=== PATIENT | male | born 1955 | race Caucasian/White ===

== ENCOUNTER 2022-07-07 20:34 | Emergency (ER) | payer MEDICARE, MEDICAID, SELFPAY ==
[2022-07-07 20:40] VITALS: BP 159/85; PULSE 96; RESP 15; TEMP 37.1; O2SAT 94; BMI 27.9
--- NOTE | 2022-07-07 20:58 | ED.GENADULT ---
HPI - General Adult General Chief complaint: Toxicology Problem Stated complaint: alcohol withdraw Time Seen by Provider: 07/07/22 20:37 Source: patient Mode of arrival: Ambulatory History of Present Illness HPI narrative: 66-year-old male with extensive alcohol history presents requesting assistance with detox. He states he had his last drink within the past hour to and does not have any current withdrawal symptoms such as agitation, hallucinations or rapid heart rate. He has been in DTs before and has even had seizures. He denies headache or blurred vision. He has no chest pain or shortness of breath. He denies nausea, vomiting or diarrhea. He denies abdominal pain. He states he drinks a bottle of wine or multiple high strength beers per day. Last detox was this summer. Related Data Previous Rx's Medication Instructions Recorded lorazepam 1 mg tablet See Rx Instructions .Route 07/07/22 .COMPLEX PRN alcohol withdrawal #19 tabs Allergies Allergy/AdvReac Type Severity Reaction Status Date / Time No Known Drug Allergies Allergy Verified 07/07/22 21:41 Review of Systems Review of Systems Narrative: GENERAL: Denies chills, fatigue, malaise, fever, sweats. HEENT: Denies sinus pain, ear pain, sore throat, difficulty swallowing, dizziness. RESPIRATORY: Denies dyspnea, cough, wheezing, hemoptysis, sputum. CARDIOVASCULAR: Denies chest pain, palpitations, orthopnea, edema, GASTROINTESTINAL: Denies nausea, vomiting, abdominal pain, diarrhea, constipation, melena. : Denies dysuria, frequency, incontinence, hematuria, urinary retention. MUSCULOSKELETAL: denies weakness, joint pain, or bony pain SKIN: Denies rash, skin lesions, or other NEUROLOGIC: Denies weakness, headache, numbness, change in speech, confusion, seizures, incoordination. PSYCHIATRIC: No concerning psychosocial issues. 12 point review of systems is negative except for those stated above Patient History alcohol intake frequency: 3 or more drinks per day Alcohol type: beer, wine, hard liquor and other Substance Use Type: does not use Exam Narrative Exam Narrative: GENERAL: [66] year old patient appears stated age. Well-developed patient, in mild distress. HEAD: Atraumatic. Normocephalic. EYES: Pupils equal round and reactive. Extraocular motions intact. No scleral icterus. No injection or drainage. ENT: Nose without bleeding, purulent drainage. Throat without erythema, tonsillar hypertrophy or exudate. Airway patent. NECK: Trachea midline. Non tender CARDIOVASCULAR: Regular rate and rhythm without murmurs, gallops, or rubs. RESPIRATORY: Clear to auscultation. Breath sounds equal bilaterally. No wheezes, rales, or rhonchi. GASTROINTESTINAL: Abdomen soft, non-tender, nondistended. EXTREMITIES: No edema or joint tenderness. BACK: Nontender without deformity or crepitance. No flank tenderness. NEURO: AOx3. SKIN: No rash or erythema of visible areas Initial Vital Signs Initial Vital Signs: Vital Signs Temperature 98.8 F 07/07/22 20:40 Pulse Rate 96 H 07/07/22 20:40 Respiratory Rate 15 07/07/22 20:40 Blood Pressure 159/85 H 07/07/22 20:40 Pulse Oximetry 94 07/07/22 20:40 Oxygen Delivery Method 07/07/22 20:40 Course Course Course Narrative: Patient with concerning history and desire to quit alcohol has very low if any CIWA score. Given his history and concern for the onset of withdrawals he is given phenobarb IM here. Patient sent with prescription for Ativan taper. During his visit he and family were on the phone with [facility] in [place] and has planned intake at 1:00 p.m.. He is given extensive return precautions and questions have been answered to his apparent satisfaction Orders Ordered: Discontinued Medications Phenobarbital (Phenobarbital 65 Mg/Ml Vial) 260 mg IM NOW ONE Stop: 07/07/22 21:16 Last Admin: 07/07/22 21:23 Dose: 260 mg Documented By: ALEXANDRA Vital Signs Vital signs: Vital Signs - 8 hr 07/07/22 20:40 07/07/22 22:01 07/07/22 22:20 Temperature 98.8 F Pulse Rate 96 H 94 H 95 H Respiratory Rate 15 14 16 Blood Pressure 159/85 H 135/87 142/84 H Pulse Oximetry 94 97 98 Oxygen Delivery Method Room Air Room Air Nasal Cannula Discharge Plan Departure Patient Disposition: Home Clinical Impression: Alcohol withdrawal syndrome Instructions: DI for Alcohol Use Disorder Activity Restrictions/Additional Instructions: *You have been diagnosed with [alcohol abuse disorder] *What to do: *Please continue to take your regular medications as directed. [ ] New medication prescriptions sent to your pharmacy: [ ] [ x] New medication written as a paper prescription [ ] No new medications given *Please proceed to [facility] in [place] tomorrow as planned *If you do not have a primary care provider please contact the [facility] Resource line at [phone]. They will ask some questions about your medical history and help get you set up with a doctor in the community. *Return to Emergency Department if you should have any new, worsening or concerning symptoms, such as [fever greater than 101 F, shaking chills, worsening pain, persistent vomiting or other bothersome symptoms] Prescriptions: New lorazepam 1 mg tablet See Rx Instructions .ROUTE .COMPLEX PRN (Reason: alcohol withdrawal) Qty: 19 0RF Rx Instructions: Day 1: 2mg PO q6 Day 2: 2mg PO q8 Day 3: 2mg PO q12 Day 4: 1mg PO qhs #19 Visit Report Forms: Patient Portal/API
[2022-07-07] MEDS: PHENobarbital 65 MG/ML VIAL 260 MG IM (21:23)
[2022-07-07 22:01] VITALS: BP 135/87; PULSE 94; RESP 14; O2SAT 97
[2022-07-07 22:20] VITALS: BP 142/84; PULSE 95; RESP 16; O2SAT 98
== END 2022-07-07 22:20 | disposition home or self-care (01) ==
PROVIDERS: Emergency Provider Emergency Medicine
DX: F10.239 Alcohol dependence with withdrawal, unspecified (principal)
CPT/HCPCS: 96372; 99283; J2560

== ENCOUNTER 2023-04-13 16:05 | Emergency (ER) | payer MEDICARE, MEDICAID, SELFPAY ==
[2023-04-13] VITALS (7 sets, daily range): BP systolic 134–154; BP diastolic 68–91; PULSE 84–104; RESP 16; TEMP 36.8; O2SAT 93–99; BMI 25.1
[2023-04-13 17:13] LABS: Add Manual Diff / Slide Review NO; Basophils Absolute Auto 0 /uL (0-100); Basophils Percent Auto 0.8 % (0-2); Eosinophils Absolute Auto 0 /uL (0-450); Eosinophils Percent Auto 0.3 % (2-4); Hemoglobin 13.8 g/dL (13.5-17.5); Lymphocytes Absolute Auto 2400 /uL (1100-4500); Lymphocytes Percent Auto 39.1 % (25-40); Mean Corpuscular HGB Conc 34.5 % (30-36); Mean Corpuscular Hemoglobin 31.7 PG (26-34); Mean Corpuscular Volume 91.8 fL (80-100); Monocytes Absolute Auto 500 /uL (0-900); Neutrophils Absolute Auto 3100 /uL (1500-7000); Neutrophils Percent Auto 50.8 % (50-75); Platelet Count 170 X10^3/uL (150-400); Red Blood Cell Count 4.35 X10^6/uL (4.5-5.9); Red Cell Distribution Width 14.1 % (11.6-14.8)
--- NOTE | 2023-04-13 17:13 | ED.GENADULT ---
HPI - General Adult General Chief complaint: Toxicology Problem Stated complaint: needs detox Time Seen by Provider: 04/13/23 17:07 Source: patient Mode of arrival: Ambulatory History of Present Illness HPI narrative: Patient is a 67-year-old male. Unknown history of alcohol abuse. Has withdrawn from alcohol in the past. Has been to multiple detox/rehab in the past. He states that the last time he was here in the department he was sent to rehab. He was clean for approximately 250 days. This was until 2 weeks ago when he stated that he bought some alcohol in order to celebrate an accomplishment that his daughter had had and he has been drinking since then. He states his last drink was last evening. He states he is feeling a little anxious. He is no other complaints. Related Data Previous Rx's Medication Instructions Recorded lorazepam 1 mg tablet See Rx Instructions .Route 07/07/22 .COMPLEX PRN alcohol withdrawal #19 tabs Allergies Allergy/AdvReac Type Severity Reaction Status Date / Time No Known Drug Allergies Allergy Verified 07/07/22 21:41 Review of Systems Constitutional Constitutional: Reports system reviewed and no additional complaints, except as documented Cardiovascular Cardiovascular: Reports system reviewed and no additional complaints, except as documented Respiratory Respiratory: Reports system reviewed and no additional complaints, except as documented Gastrointestinal Gastrointestinal: Reports system reviewed and no additional complaints, except as documented Integumentary/Breasts Skin/Breast: Reports system reviewed and no additional complaints, except as documented Hematologic/Lymphatic On Anticoagulants: No Patient History Social History Smoking Status: Never smoker Smoking Status: Never smoker alcohol intake frequency: 3 or more drinks per day Alcohol type: beer, wine, hard liquor and other Substance Use Type: does not use Exam Initial Vital Signs Initial Vital Signs: Vital Signs Temperature 98.3 F 04/13/23 16:24 Pulse Rate 89 04/13/23 16:24 Respiratory Rate 16 04/13/23 16:24 Blood Pressure 134/81 04/13/23 16:24 Pulse Oximetry 99 04/13/23 16:24 Oxygen Delivery Method Room Air 04/13/23 16:24 Const General: cooperative, comfortable and No ill appearing HENMT Head: normal to inspection and normocephalic Resp Effort & Inspection: normal respiratory effort Cardio Rate: regular rate Skin General: no rashes or lesions noted Neuro General: patient alert, patient awake and moves all extremities Extrem General: normal to inspection and capillary refill normal Scores GCS Rolf coma scale eye opening: Spontaneous Rolf coma scale verbal response: Orientated Rolf coma scale motor response: Obey commands [place] coma scale total score: 15 Course Orders Ordered: ED Orders 04/13/23 16:45 Consult to [facility] [place] - [employer] Salesperson Stat 04/13/23 16:47 Urine Drug Screen, Rapid Stat 04/13/23 16:48 Urinalysis and Microscopic Stat 04/13/23 16:58 COVID19 -Nasal RAPID Stat 04/13/23 17:03 Complete Blood Count AUTO DIFF Stat Comprehensive Metabolic Panel Stat Ethanol (ETOH) Stat Discontinued Medications Phenobarbital (Phenobarbital 65 Mg/Ml Vial) 260 mg IM NOW ONE Stop: 04/13/23 17:14 Last Admin: 04/13/23 17:26 Dose: 260 mg Documented By: INNA Vital Signs Vital signs: Vital Signs - 8 hr 04/13/23 16:24 Temperature 98.3 F Pulse Rate 89 Respiratory Rate 16 Blood Pressure 134/81 Pulse Oximetry 99 Oxygen Delivery Method Room Air Medical Decision Making Medical Records Medical records reviewed: Yes I reviewed the patient's medical records. Lab Data Lab results reviewed: Yes I reviewed the patient's lab results. 04/13/23 17:03 04/13/23 17:03 Labs: Lab Results 04/13/23 04/13/23 04/13/23 Range/Units 16:58 17:03 17:03 WBC 6.0 (4.5-11.0) X10^3/uL RBC 4.35 L (4.5-5.9) X10^6/uL Hgb 13.8 (13.5-17.5) g/dL Hct 40.0 L (41-53) % MCV 91.8 (80-100) fL MCH 31.7 (26-34) PG MCHC 34.5 (30-36) % RDW 14.1 (11.6-14.8) % Plt Count 170 (150-400) X10^3/uL Neut % (Auto) 50.8 (50-75) % Lymph % (Auto) 39.1 (25-40) % Sherman % (Auto) 9.0 (3-14) % Eos % (Auto) 0.3 L (2-4) % Baso % (Auto) 0.8 (0-2) % Neut # (Auto) 3100 (6617-5155) /uL Lymph # (Auto) 2400 (6190-0093) /uL Sherman # (Auto) 500 (0-900) /uL Eos # (Auto) 0 (0-450) /uL Baso # (Auto) 0 (0-100) /uL Sodium 142 (137-145) mmol/L Potassium 3.9 (3.4-5.1) mmol/L [place] 103 (98-107) mmol/L Carbon Dioxide 25 (22-32) mmol/L BUN 13 (9-20) mg/dL Creatinine 0.71 (0.66-1.25) mg/dL Estimated GFR > 60 (>60) mL/min BUN/Creatinine Ratio 18.3 (6-22) Glucose 109 (80-110) mg/dL Calcium 8.8 (8.4-10.2) mg/dL Total Bilirubin 1.0 (0.2-1.3) mg/dL AST 43 (17-59) IU/L ALT 21 (<50) IU/L Alkaline Phosphatase 85 (38-126) U/L Total Protein 8.0 (6.3-8.2) g/dL Albumin 4.6 (3.5-5.0) g/dL Globulin 3.4 (1.7-4.1) g/dL Albumin/Globulin Ratio 1.4 (1.0-2.8) Ethyl Alcohol 297 H ( - 10) mg/dL SARS-CoV-2 (PCR) Negative (Negative) MDM Narrative Medical decision making narrative: Patient is alert oriented x3. Is having some anxiety. Was given phenobarbital which he states helped him in the past. Patient has been seen by social work. Care turned over to Dr. Ireland to continue with medical clearance with anticipated transfer to rehab. Discharge Plan Departure Prescriptions: No Action lorazepam 1 mg tablet See Rx Instructions .ROUTE .COMPLEX PRN (Reason: alcohol withdrawal) Qty: 19 0RF Rx Instructions: Day 1: 2mg PO q6 Day 2: 2mg PO q8 Day 3: 2mg PO q12 Day 4: 1mg PO qhs #19
[2023-04-13] MEDS: PHENobarbital 65 MG/ML VIAL 260 MG IM (17:26)
[2023-04-13 17:43] LABS: Alanine Aminotransferase 21 IU/L (<50); Albumin 4.6 g/dL (3.5-5.0); Albumin Globulin Ratio 1.4 (1.0-2.8); Alkaline Phosphatase 85 U/L (38-126); Aspartate Aminotransferase 43 IU/L (17-59); BUN Creatinine Ratio 18.3 (6-22); Blood Urea Nitrogen 13 mg/dL (9-20); Calcium 8.8 mg/dL (8.4-10.2); Carbon Dioxide 25 mmol/L (22-32); Chloride 103 mmol/L (98-107); Estimated Glomerular Filt Rate > 60 mL/min (>60); Ethanol (ETOH) 297 mg/dL; Globulin 3.4 g/dL (1.7-4.1); Glucose 109 mg/dL (80-110); HEMOLYSIS < 15 (0-50); Potassium 3.9 mmol/L (3.4-5.1); Sodium 142 mmol/L (137-145)
[2023-04-13 17:57] LABS: COVID19 -Nasal RAPID Negative (Negative)
--- NOTE | 2023-04-13 18:26 | CM.SWNOTE ---
Addendum entered by Diane Akins 04/13/23 19:53: Pt has been declined by [facility]. Discussed resources with pt and niece. Son Edmar is also now at bedside. Only other placement identified as a possibility is [facility] in [place]. SW called this facility and left a voicemail but has not heard back. Niece is aware of this facilityi adn indicates she had been told to call at 08:00. Pt and family all report feeling comfortable discharging home and attempting placement at [facility] tomorrow 04/14. Plan: Above information provided to MD. Anticipate pt will be discharged home. SHADI Thacker, RELIEF OPERATOR Original Note: ED AUTOMOTIVE DISMANTLER Note 18:30 Pt is a 67yo male who comes to the ED seeking detox from alcohol. Pt has a hx of Alcohol use disorder. He had been sober for 276 days prior to two weeks again when he had a resumption of use. Pt identifies he was celebrating an event and bought alcohol and has been drinking at least a bottle of wine or equivalent every day for the past two weeks. Pt reports he does not wish to use and is seeking help to enter a detox program. Pt lives alone and identifies concern for his safety if he were to go through alcohol detox at home. Pt nimann is at bedside and is a strong support. She identifies numerous other family and friends who are supportive of the pt. SW spoke with [facility] who confirm they do have beds and ask that pt call to complete a screen. SW to fax records to [facility]. Pt is a strong candidate for social detox program for detox from alcohol use. Pt is in agreement and requesting transfer to detox service. Plan: Detox referral in process. SHADI Thacker, RELIEF OPERATOR
[2023-04-13 19:15] LABS: Appearance Urine UA CLEAR; Bilirubin Urine UA NEGATIVE (NEGATIVE); Color Urine UA YELLOW; Glucose Urine UA NEGATIVE (Negative); Ketones Urine UA NEGATIVE (NEGATIVE); Leukocyte Esterase Urine UA NEGATIVE (NEGATIVE); Nitrite Urine UA NEGATIVE (Negative); Occult Blood Urine UA NEGATIVE (Negative); Protein Urine UA NEGATIVE (Negative); Specific Gravity Urine UA 1.015 (1.000-1.035); pH Urine UA 6.5 (4.5-8.0)
[2023-04-13 19:18] LABS: UR Morphine/Opiate cutoff 300 Negative (Negative); Ur Creatinine Normal (Normal); Ur Specific Gravity Normal (Normal); Urine Amphetamines Negative (Negative); Urine Barbiturates Negative (Negative); Urine Benzodiazepines Negative (Negative); Urine Cocaine Negative (Negative); Urine MDMA Negative (Negative); Urine Methadone Negative (Negative); Urine Methamphetamines Negative (Negative); Urine Oxycodone Negative (Negative); Urine Phencyclidine Negative (Negative); Urine Tetrahydrocannabinol Negative (Negative); Urine Tricyclic Antidepressant Negative (Negative); Urine pH Normal (Normal)
[2023-04-13 19:22] LABS: Bacteria Urine None Seen; RBC Urine 0-1/HPF (0-5/HPF); WBC Urine 0-1/HPF (0-5/HPF)
[2023-04-13 19:23] LABS: Culture Indicated Urine Cult Not Indicated; Squamous Epithelial Cell Urine 0-1 /HPF (0-5/HPF)
[2023-04-13] MEDS: LORazepam 0.5 MG TABLET 2 MG PO (20:00)
== END 2023-04-13 20:37 | disposition home or self-care (01) ==
PROVIDERS: Emergency Medicine; Emergency Provider Emergency Medicine
DX: F10.129 Alcohol abuse with intoxication, unspecified (principal); Y90.8 Blood alcohol level of 240 mg/100 ml or more; Z20.822 Contact with and (suspected) exposure to COVID-19
CPT/HCPCS: 36415; 80053; 80305; 80320; 81001; 85025; 87635; 96372; 99284; C9803; J2560

== ENCOUNTER 2024-11-06 08:28 | Emergency (ER) | payer MEDICARE, SELFPAY ==
[2024-11-06] VITALS (8 sets, daily range): BP systolic 139–165; BP diastolic 80–93; PULSE 88–107; RESP 19–37; TEMP 36.7–36.8; O2SAT 91–99; BMI 26.5
--- NOTE | 2024-11-06 08:37 | EKG_ITS ---
[id number] [address] Test Date: 2024-11-06 Pat Name: Jose Lehman Department: Room: Gender: Male Teacher'S Assistant: KYMBERLY : 1955 Requested By: Order Number: [id number] Reading MD: Charlie Peng MD Measurements Intervals [place] Rate: 99 P: 32 NH: 170 QRS: 23 QRSD: 86 T: -3 QT: 362 QTc: 464 Interpretive Statements Normal sinus rhythm Nonspecific ST abnormality Electronically Signed On 11-06-2024 11:57:01 PDT by Charlie Peng MD
--- NOTE | 2024-11-06 08:42 | DI.RAD.S_ITS ---
PROCEDURE: XR CHEST 1V INDICATIONS: chest pain TECHNIQUE: One view of the chest was acquired. COMPARISON: None. FINDINGS: Surgical changes and devices: None. Lungs and pleura: Lungs are clear. No pleural effusions or pneumothorax. Mediastinum: Mediastinal contours appear normal. Heart size is normal. Bones and chest wall: No suspicious bony lesions. Overlying soft tissues appear unremarkable. IMPRESSION: No acute cardiopulmonary abnormality is seen. Dictated by: Portillo Schultz M.D. on 11/06/2024 at 9:06 Approved by: Portillo Schultz M.D. on 11/06/2024 at 9:06
--- NOTE | 2024-11-06 08:54 | ED.CHESTPAIN ---
HPI - Chest Pain General Chief Complaint: Chest Pain Stated Complaint: sent to check [facility] Time Seen by Provider: 11/06/24 08:54 Source: patient Mode of arrival: Ambulatory Limitations: no limitations History of Present Illness HPI narrative: 69-year-old gentleman history of alcohol use abuse presents today for evaluation of heart palpitations his last drink was a pt of whiskey yesterday. His plan today is to go to alcohol rehab but they wanted him to come here to get clearance. Pt denies any chest pain, shortness of breath,dyspnea on exertion, back pain or any radiating symptoms he is asymptomatic at this point now. Other than what is stated 14 point review of system is negative Related Data Previous Rx's Medication Instructions Recorded lorazepam 1 mg tablet See Rx Instructions .Route 07/07/22 .COMPLEX PRN alcohol withdrawal #19 tabs lorazepam 1 mg tablet 1 mg PO TID #19 tabs 04/13/23 Allergies Allergy/AdvReac Type Severity Reaction Status Date / Time No Known Drug Allergies Allergy Verified 11/06/24 08:38 Review of Systems Review of Systems ROS Unobtainable: All systems reviewed & are unremarkable except as noted in HPI and below Patient History Social History Smoking Status: Never smoker Smoking Status: Never smoker alcohol intake frequency: 3 or more drinks per day Alcohol type: beer, wine, hard liquor and other Exam Narrative Exam Narrative: GENERAL: [] year old patient appears stated age. Well-developed patient, in mild distress. HEAD: Atraumatic. Normocephalic. EYES: Pupils equal round and reactive. Extraocular motions intact. No scleral icterus. No injection or drainage. NECK: Trachea midline. Non tender CARDIOVASCULAR: Regular rate and rhythm without murmurs, gallops, or rubs. RESPIRATORY: Clear to auscultation. Breath sounds equal bilaterally. No wheezes, rales, or rhonchi. GASTROINTESTINAL: Abdomen soft, non-tender, nondistended. EXTREMITIES: No edema or joint tenderness. BACK: Nontender without deformity or crepitance. No flank tenderness. NEURO: AOx3. SKIN: No rash or erythema of visible areas Initial Vital Signs Initial Vital Signs: Vital Signs Pulse Rate 107 H 11/06/24 08:31 Pulse Oximetry 99 11/06/24 08:31 Scores HEART Score Heart Score history: Slightly Suspicious Heart Score EKG: Normal Heart Score Age: > or = 65 years old Heart Score risk factors: No known risk factors Heart Score troponin: < or = to normal limit Heart Score Total: 2 Course Orders Ordered: Discontinued Medications Aspirin (Aspirin 81 Mg Chew Tab) 324 mg PO NOW ONE Stop: 11/06/24 08:43 Last Admin: 11/06/24 10:36 Dose: Not Given Documented By: NOHELIA Aspirin (Aspirin 81 Mg Chew Tab) 324 mg PO NOW ONE Stop: 11/06/24 08:42 Last Admin: 11/06/24 08:46 Dose: Not Given Documented By: KEIKO Vital Signs Vital signs: Vital Signs - 8 hr 11/06/24 10:30 11/06/24 10:30 Temperature 98.2 F Pulse Rate 88 Blood Pressure 144/89 H Pulse Oximetry 97 MDM - Chest Pain Lab Data 11/06/24 08:40 11/06/24 08:40 Labs: Lab Results 11/06/24 11/06/24 Range/Units 08:40 08:47 WBC 7.3 (4.5-11.0) X10^3/uL RBC 3.97 L (4.5-5.9) X10^6/uL Hgb 13.2 L (13.5-17.5) g/dL Hct 38.4 L (41-53) % MCV 96.7 (80-100) fL MCH 33.3 (26-34) PG MCHC 34.4 (30-36) % RDW 14.5 (11.6-14.8) % Plt Count 230 (150-400) X10^3/uL Neut % (Auto) 56.9 (50-75) % Lymph % (Auto) 32.9 (25-40) % Walsh % (Auto) 8.9 (3-14) % Eos % (Auto) 0.8 L (2-4) % Baso % (Auto) 0.5 (0-2) % Neut # (Auto) 4100 (0923-3364) /uL Lymph # (Auto) 2400 (4138-8213) /uL Walsh # (Auto) 600 (0-900) /uL Eos # (Auto) 100 (0-450) /uL Baso # (Auto) 0 (0-100) /uL PT 10.7 (9.4-12.5) SECONDS INR 0.9 (0.9-1.3) APTT 23 L (25.1-36.5) SECONDS Sodium 142 (137-145) mmol/L Potassium 3.5 (3.4-5.1) mmol/L [place] 105 (98-107) mmol/L Carbon Dioxide 22 (22-32) mmol/L BUN 8 L (9-20) mg/dL Creatinine 0.69 (0.66-1.25) mg/dL Estimated GFR > 60 (>60) mL/min BUN/Creatinine Ratio 11.6 (6-22) Glucose 145 H (80-110) mg/dL Calcium 8.8 (8.4-10.2) mg/dL Magnesium 2.0 (1.6-2.3) mg/dL Total Bilirubin 0.8 (0.2-1.3) mg/dL AST 44 (17-59) IU/L ALT 24 (<50) IU/L Alkaline Phosphatase 72 (38-126) U/L Total Creatine Kinase 76 (55-170) U/L Troponin I < 0.012 (0.01-0.034) ng/mL NT-Pro-B Natriuret Pep 32 (<125) pg/mL Total Protein 7.7 (6.3-8.2) g/dL Albumin 4.6 (3.5-5.0) g/dL Globulin 3.1 (1.7-4.1) g/dL Albumin/Globulin Ratio 1.5 (1.0-2.8) Lipase 117 (23-300) U/L TSH 1.39 (0.47-4.68) uIU/mL Free T4 0.85 (0.78-2.19) ng/dL Urine RBC None seen (0-5/HPF) Urine WBC 0-1/hpf (0-5/HPF) Ur Squamous Epith Cells 0-1 /hpf (0-5/HPF) Amorphous Sediment 1+ Urine Bacteria None seen (None) Urine Mucus 1+ H (Negative) Ur Culture Indicated? Cult not indicated Vol Urine Centrifuged 10ml (spun) Salicylates < 1.0 (<20) mg/dL U Opiates 300ng/mL cut Negative (Negative) Ur Oxycodone Screen Negative (Negative) Urine Methadone Screen Negative (Negative) Acetaminophen < 10 (10-30) ug/mL Ur Barbiturates Screen Negative (Negative) U Tricyclic Antidepress Negative (Negative) Ur Phencyclidine Scrn Negative (Negative) Ur Amphetamines Screen Negative (Negative) U Methamphetamines Scrn Negative (Negative) Ur MDMA Scrn (Ecstasy) Negative (Negative) U Benzodiazepines Scrn Negative (Negative) Urine Cocaine Screen Positive H (Negative) U Marijuana (THC) Screen Positive H (Negative) Urine pH Normal (Normal) Urine Specific [place] Normal (Normal) Ethyl Alcohol 289 H ( - 10) mg/dL Ur Creatinine Normal (Normal) Urine Dip Bedside Urine Glucose Negative Bedside Urine Bilirubin - Negative Bedside Urine Ketone - Negative Urine Specific [place] 1.020 Bedside Urine Occult Blood - Negative Bedside Urine pH 6.0 Bedside Urine Protein +/- 15 Bedside Urine Urobilinogen - Negative Bedside Urine Nitrite - Negative Bedside Urine Leukocytes - Negative Esterase Imaging Data Chest x-ray: Radiologist's Impression: [address] [address] XRay Report Signed Patient: Jose Lehman MR#: [id number] : 1955 Acct:[id number] Age/Sex: 69 / M Date of Service: 11/06/24 Loc: ED Accession Number: [id number] Procedure: XR chest 1V Ordering Provider: Charlie Frost D.O. PROCEDURE: XR CHEST 1V INDICATIONS: chest pain TECHNIQUE: One view of the chest was acquired. COMPARISON: None. FINDINGS: Surgical changes and devices: None. Lungs and pleura: Lungs are clear. No pleural effusions or pneumothorax. Mediastinum: Mediastinal contours appear normal. Heart size is normal. Bones and chest wall: No suspicious bony lesions. Overlying soft tissues appear unremarkable. IMPRESSION: No acute cardiopulmonary abnormality is seen. ECG Data Attestation: I personally reviewed and interpreted this ECG as follows: Interpretation: Sinus Rhythm HR [address]-t wave changes No old ekg for comparison MDM Narrative Medical decision making narrative: All labwork, imaging, ekg, RN note, triage note, medication list, old records from previous visits, vital signs all reviewed. Differential dx - STEMI, NSTEMI, electrolyte derangement, alcohol withdrawal, DT. Pt is going to Alcohol rehab per directly after d/c home. Discharge Plan Departure Patient Disposition: Home Clinical Impression: Heart palpitations Instructions: DI for Chest Pain Activity Restrictions/Additional Instructions: Return with new or worsening symptoms. Pt is medically cleared for detox and rehab admission. Prescriptions: No Action lorazepam 1 mg tablet See Rx Instructions .ROUTE .COMPLEX PRN (Reason: alcohol withdrawal) Qty: 19 0RF Rx Instructions: Day 1: 2mg PO q6 Day 2: 2mg PO q8 Day 3: 2mg PO q12 Day 4: 1mg PO qhs #19 lorazepam 1 mg tablet 1 mg PO TID Qty: 19 0RF Rx Instructions: Day 1: 2mg PO q6, Day 2: 2mg PO q8 Day 3: 2mg PO q12 Day 4: 1mg PO qhs Stand Alone Forms: Patient Portal/API/Survey
[2024-11-06 08:56] LABS: Add Manual Diff / Slide Review NO; Basophils Absolute Auto 0 /uL (0-100); Basophils Percent Auto 0.5 % (0-2); Eosinophils Absolute Auto 100 /uL (0-450); Eosinophils Percent Auto 0.8 % (2-4); Hematocrit 38.4 % (41-53); Hemoglobin 13.2 g/dL (13.5-17.5); Lymphocytes Absolute Auto 2400 /uL (1100-4500); Lymphocytes Percent Auto 32.9 % (25-40); Mean Corpuscular HGB Conc 34.4 % (30-36); Mean Corpuscular Hemoglobin 33.3 PG (26-34); Mean Corpuscular Volume 96.7 fL (80-100); Monocytes Absolute Auto 600 /uL (0-900); Monocytes Percent Auto 8.9 % (3-14); Neutrophils Absolute Auto 4100 /uL (1500-7000); Neutrophils Percent Auto 56.9 % (50-75); Platelet Count 230 X10^3/uL (150-400); Red Blood Cell Count 3.97 X10^6/uL (4.5-5.9); Red Cell Distribution Width 14.5 % (11.6-14.8); White Blood Cell Count 7.3 X10^3/uL (4.5-11.0)
[2024-11-06 09:02] LABS: INR 0.9 (0.9-1.3); Prothrombin Time 10.7 SECONDS (9.4-12.5)
[2024-11-06 09:05] LABS: PTT Partial Thromboplastin Tim 23 SECONDS (25.1-36.5)
[2024-11-06 09:07] LABS: Acetaminophen < 10 ug/mL (10-30); Alanine Aminotransferase 24 IU/L (<50); Albumin 4.6 g/dL (3.5-5.0); Albumin Globulin Ratio 1.5 (1.0-2.8); Alkaline Phosphatase 72 U/L (38-126); Aspartate Aminotransferase 44 IU/L (17-59); BUN Creatinine Ratio 11.6 (6-22); Bilirubin Total 0.8 mg/dL (0.2-1.3); Blood Urea Nitrogen 8 mg/dL (9-20); Calcium 8.8 mg/dL (8.4-10.2); Carbon Dioxide 22 mmol/L (22-32); Chloride 105 mmol/L (98-107); Creatine Kinase 76 U/L (55-170); Estimated Glomerular Filt Rate > 60 mL/min (>60); Ethanol (ETOH) 289 mg/dL; Globulin 3.1 g/dL (1.7-4.1); Glucose 145 mg/dL (80-110); HEMOLYSIS < 15 (0-50); Lipase 117 U/L (23-300); Potassium 3.5 mmol/L (3.4-5.1); Salicylate < 1.0 mg/dL (<20); Sodium 142 mmol/L (137-145); Total Protein 7.7 g/dL (6.3-8.2)
[2024-11-06 09:11] LABS: Urine Volume 10mL (spun)
[2024-11-06 09:12] LABS: Amorphous Sediment Urine 1+; Bacteria Urine None Seen; Culture Indicated Urine Cult Not Indicated; Mucus Urine 1+ (Negative); RBC Urine None Seen (0-5/HPF); Squamous Epithelial Cell Urine 0-1 /HPF (0-5/HPF); WBC Urine 0-1/HPF (0-5/HPF)
[2024-11-06 09:17] LABS: NT-proBNP (BNP-Adult 18+) 32 pg/mL (<125); Troponin I < 0.012 ng/mL (0.01-0.034)
[2024-11-06 09:39] LABS: Free T4, Direct Thyroxine 0.85 ng/dL (0.78-2.19)
[2024-11-06 09:53] LABS: Thyroid Stimulating Hormone 1.39 uIU/mL (0.47-4.68)
[2024-11-06 10:47] LABS: Ur Creatinine Normal (Normal); Ur Specific Gravity Normal (Normal); Urine pH Normal (Normal)
[2024-11-06 10:48] LABS: Urine Amphetamines Negative (Negative); Urine Barbiturates Negative (Negative); Urine Benzodiazepines Negative (Negative); Urine Cocaine Positive (Negative); Urine MDMA Negative (Negative); Urine Methadone Negative (Negative); Urine Methamphetamines Negative (Negative); Urine Opiates Negative (Negative); Urine Oxycodone Negative (Negative); Urine Phencyclidine Negative (Negative); Urine THC Positive (Negative); Urine Tricyclic Antidepressant Negative (Negative)
== END 2024-11-06 10:52 | disposition home or self-care (01) ==
PROVIDERS: Emergency Provider Family Medicine
DX: R00.2 Palpitations (principal); F10.10 Alcohol abuse, uncomplicated; Y90.8 Blood alcohol level of 240 mg/100 ml or more
CPT/HCPCS: 71045; 80053; 80305; 80320; 80329; 81003; 81015; 82550; 83690; 83735; 83880; 84439; 84443; 84484; 85025; 85610; 85730; 93005; 93010; 99283; 99284; G0480